=== PATIENT | male | born 1995 | race Caucasian/White ===

== ENCOUNTER 2025-08-20 04:14 | Emergency (ER) | payer OTHER, SELFPAY ==
[2025-08-20 04:16] VITALS: BP 133/71; PULSE 103; RESP 18; TEMP 39.3; O2SAT 97; BMI 35.4
[2025-08-20] MEDS: 0.9% Normal Saline (1000mL) 1,000 ML 999 ML IV ×2 (04:39→05:38)
[2025-08-20] MEDS: Ketorolac 30 MG/ML Syringe IV (04:39)
--- OUTSIDE RECORDS SUMMARY | 2025-08-20 04:57 | XMS RPT_ITS | CCD ---
Author Organization [facility] Care Team Providers Care Product Inspection Coordinator Name Role Phone Yoandy Campos MD Primary Care Provider YOANDY CAMPOS Primary Care Unavailab le PROVIDER, UNKNOWN Referring Unavailable PROVIDER, UNKNOWN Referring Unavailable YOANDY CAMPOS Primary Care Unavailab le Jaiden JACKSON, Chalino Bolivar Primary Care Provider Jaiden JACKSON, Chalino Bolivar Primary Care Provider CHALINO HWANG Primary Care Unavailable CHALINO HWANG Primary Care Unavailable Medications Current Medications Medication Drug Class(es) Dates Sig (Normalized) Sig (Original) enteric contrast (will be provided with radiology test) (1 source) Start: 04-14-2022 End: 04-15-2022 enteric contrast (will be provided with radiology test) Indications: Ileitis For CT ENTEROGRAPHY W IVCON order Administer, As Directed One Time Only, via Oral, Rectal, both Oral and Rectal, Enteric Tube, Stoma or Indwelling Catheter, Enteric Contrast as designated per enteric contrast guidelines. 1 Each 0 04/14/2022 04/15/2022 Active Comment on above: For CT ENTEROGRAPHY W IVCON order Admini ster, As Directed One Time Only, via Oral, Rectal, both Oral and Rectal, Enteric Tube, Stoma or Indwelling Catheter, Enteric Contrast as designated per enteric contrast guidelines. iv contrast (will be provided with radiology test) (1 source) Start: 04-14-2022 End: 04-15-2022 iv contrast (will be provided with radiology test) Indications: Ileitis CT Enterography W Inject, intravenously, once for 1 dose.No IV access, insert saline lock prior to the beginning of sedation, infusion, injection of imaging exam. Discontinue saline lock post exam. If Pt. has a central line or IVAD, may access for administration according to line specific nursing protocol. Once exam is complete flush line and de-access according to line specific nursing protocol in the CT contrast administration guidelines link. 1 Each 0 04/14/2022 04/15/2022 Active Comment on above: CT Enterography W Inject, intravenously, once for 1 dose.No IV access, insert saline lock prior to the beginning of sedation, infusion, injection of imaging exam. Discontinue saline lock post exam. If Pt. has a central line or IVAD, may access for administration according to line specific nursing protocol. Once exam is complete flush line and de-access according to line specific nursing protocol in the CT contrast administration guidelines link. omeprazole 20 mg delayed release oral capsule (9 sources) Proton Pump Inhibitor Start: 04-14-2022 End: 07-13-2022 take 1 capsule by mouth once daily 30 minutes before breakfast omeprazole (PRILOSEC) 20 mg capsule Indications: Gastroesophageal reflux disease with esophagitis without hemorrhage Take 1 capsule by mouth once daily. Take 30 minutes before breakfast. 90 capsule 0 04/14/2022 07/13/2022 Active Start: 03-29-2022 End: 04-28-2022 take 2 capsules by mouth once daily before breakfast omeprazole (PRILOSEC) 20 mg capsule Indications: Gastroesophageal reflux disease with esophagitis without hemorrhage Take 2 capsules by mouth daily before breakfast. Take 30 minutes before breakfast. 180 capsule 0 04/14/2022 04/14/2022 Discontinued (Clinical Decision) Comment on above: Take 2 capsules by m outh daily before breakfast. 1/2 hr before meal. Take 1 capsule by mo uth once daily. Take 30 minutes before breakfast. Take 2 capsules by m outh daily before breakfast. Take 30 minutes before breakfast. predniSONE 10 mg oral tablet (2 sources) Start: 03-26-2024 predniSONE (DELTASONE) 10 mg tablet Take 4 tabs daily for 3 days, then 2 tabs daily for 3 days, then 1 tab daily for 3 days with food. 21 tablet 0 03/26/2024 Active Start: 10-24-2023 End: 11-02-2023 predniSONE (DELTASONE) 10 mg tablet Take 4 tabs daily for 3 days, then 2 tabs daily for 3 days, then 1 tab daily for 3 days with food. 21 tablet 0 10/24/2023 11/02/2023 Active Comment on above: Take 4 tabs daily fo r 3 days, then 2 tabs daily for 3 days, then 1 tab daily for 3 days with food. triamcinolone acetonide 1 mg/ml topical cream (2 sources) Corticosteroid Start: 10-24-2023 triamcinolone acetonide (KENALOG) 0.1 % cream Apply 1 application to affected area two times a day. Apply to affected area. 15 g 0 10/24/2023 Active Comment on above: Apply 1 application to affected area two times a day. Apply to affected area. Completed/Discontinued Medications Medication Drug Class(es) Dates Sig (Normalized) Sig (Original) benzonatate 100 mg oral capsule (7 sources) Non-narcotic Antitussive Start: 10-04-2019 benzonatate (TESSALON PERLE) 100 mg capsule Indications: Cough Take 1-2 capsules tid prn, no more than 6 in 24 hours. 40 capsule 0 10/04/2019 Active Comment on above: Take 1-2 capsules ti d prn, no more than 6 in 24 hours. ondansetron 4 mg disintegrating oral tablet (7 sources) Serotonin-3 Receptor Antagonist Start: 03-29-2022 take 1 tablet by mouth every eight hours as needed ondansetron orally disintegrating (ZOFRAN ODT) 4 mg disintegrating tablet Take 1 tablet by mouth every 8 hours as needed. 12 tablet 0 03/29/2022 Active Comment on above: Take 1 tablet by noman th every 8 hours as needed. Problems Problem Classification Problem Date Documented Date Episodic/Chronic Abdominal pain (6 sources) Generalized abdominal pain; Translations: [Generalized abdominal pain] Onset: 05-26-2022 Episodic Allergic reactions (2 sources) Allergic contact dermatitis caused by plant material; Translations: [Allergic contact dermatitis due to plants, except food] 10-24-2023 Episodic Esophageal disorders (2 sources) Gastro-esophageal reflux disease with esophagitis; Translations: [Gastroesophageal reflux disease with esophagitis without hemorrhage] Chronic Nausea and vomiting (3 sources) Nausea; Translations: [Nausea] Episodic Noninfectious gastroenteritis (3 sources) Ileitis; Translations: [Noninfective gastroenteritis and colitis, unspecified] Onset: 05-26-2022 Episodic Other nutritional; endocrine; and metabolic disorders (3 sources) Weight loss; Translations: [Abnormal weight loss] Episodic Residual codes; unclassified (3 sources) Early satiety; Translations: [Early satiety] Episodic Residual codes; unclassified (3 sources) FH: Ulcerative colitis; Translations: [Family history of other diseases of the digestive system] Episodic Residual codes; unclassified (2 sources) Family history of inflammatory bowel disease; Translations: [Family history of other diseases of the digestive system] Episodic Residual codes; unclassified (1 source) Family history of other diseases of the digestive system; Translations: [FH: inflammatory bowel disease] Onset: 05-26-2022 Episodic Results Test Name Value Interpretation Reference Range Facility CNOV 03-26-2024 CNOV Office Visit ([facility] ) -------- ERNESTINESONIDO Dianne ([id number]) 1995 M Date Time Provider Department 03/26/24 6:00 PM GILSON GÓMEZ [facility] During your visit today, we recorded the following information about you: Temperature Pulse Respiration Blood pressure 98.3 degrees 84/minute 16/minute 112/68 Weight 71.8 kg Gilson Gómez APRN.CNP 03/26/2024 6:19 PM Signed This note was created using NoteWriter. Subjective Sonido Dianne Sanderson is a 28 year old male. 28 year old male with no PMH presents for rash Acute onset 5 to 6 days ago Bilateral arms, Bilateral legs +trunk +red raised and itchy +exposure to vine plants Denies new lotions, soaps or medicines Has used Calamine Has used Crystal Dry Denies fever or chills Denies URI sx Denies body aches or fatigue Anytime I get poison crystal I need steroids The history is provided by the patient. No medical insurance biller was used. Rash This is a new problem. The current episode started in the past 7 days. The problem is unchanged. The rash is diffuse. The rash is characterized by redness and itchiness. He was exposed to plant contact. Pertinent negatives include no anorexia, congestion, cough, diarrhea, eye pain, facial edema, fatigue, fever, joint pain, nail changes, rhinorrhea, shortness of breath, sore throat or vomiting. Past treatments include anti-itch cream. The treatment provided no relief. There is no history of allergies, asthma, eczema or varicella. PAST MEDICAL HISTORY No date: NEGATIVE MEDICAL HISTORY PAST SURGICAL HISTORY 04/05/2022: COLONOSCOPY Comment: repeat in 5 years 04/05/2022: EGD W/O [facility] SPEC VARICIES INJ No date: NONE ALLERGIES Patient has no known allergies. MEDICATIONS predniSONE (DELTASONE) 10 mg tablet Take 4 tabs daily for 3 days, then 2 tabs daily for 3 days, then 1 tab daily for 3 days with food. triamcinolone acetonide (KENALOG) 0.1 % cream Apply 1 application to affected area two times a day. Apply to affected area. (Patient not taking: Reported on 03/26/2024) No family history on file. Social History Tobacco Use Smoking status: Never Passive exposure: Yes Smokeless tobacco: Never Vaping Use Vaping Use: Never used Substance Use Topics Alcohol use: Yes Drug use: Never Review of Systems Constitutional: Negative for activity change, appetite change, chills, fatigue and fever. HENT: Negative for congestion, rhinorrhea and sore throat. Eyes: Negative for pain, discharge and itching. Respiratory: Negative for apnea, cough, chest tightness and shortness of breath. Cardiovascular: Negative for chest pain, palpitations and leg swelling. Gastrointestinal: Negative for abdominal pain, anorexia, diarrhea and vomiting. Musculoskeletal: Negative for arthralgias, back pain and joint pain. Skin: Positive for rash. Negative for color change and nail changes. Allergic/Immunologic: Negative for environmental allergies, food allergies and immunocompromised state. Neurological: Negative for dizziness, seizures, facial asymmetry, light-headedness, numbness and headaches. Hematological: Negative for adenopathy. Does not bruise/bleed easily. Psychiatric/Behavioral: Negative for agitation and behavioral problems. Objective BP 112/68 Pulse 84 Temp 36.8 ?C (98.3 ?F) Resp 16 Wt 71.8 kg (158 lb 4.6 oz) SpO2 96% BMI 24.79 kg/m? Physical Exam Vitals and nursing note reviewed. Constitutional: General: He is not in acute distress. Appearance: Normal appearance. He is not ill-appearing, toxic-appearing or diaphoretic. HENT: Head: Normocephalic and atraumatic. Right Ear: External ear normal. Left Ear: External ear normal. Nose: Nose normal. No congestion or rhinorrhea. Mouth/Throat: Mouth: Mucous membranes are moist. Pharynx: Oropharynx is clear. No oropharyngeal exudate or posterior oropharyngeal erythema. Eyes: General: Right eye: No discharge. Left eye: No discharge. Extraocular Movements: Extraocular movements intact. Conjunctiva/sclera: Conjunctivae normal. Pupils: Pupils are equal, round, and reactive to light. Cardiovascular: Rate and Rhythm: Normal rate and regular rhythm. Pulses: Normal pulses. Heart sounds: Normal heart sounds. No murmur heard. No friction rub. No gallop. Pulmonary: Effort: Pulmonary effort is normal. No respiratory distress. Breath sounds: Normal breath sounds. No stridor. No wheezing, rhonchi or rales. Chest: Chest wall: No tenderness. Abdominal: General: Abdomen is flat. There is no distension. Palpations: Abdomen is soft. There is no mass. Tenderness: There is no abdominal tenderness. There is no guarding or rebound. Hernia: No hernia is present. Musculoskeletal: General: No swelling, tenderness, deformity or signs of injury. Normal range of motion. Cervical back: Normal range of motion and neck supple. No rigidity or tende (more content not included)... Normal [facility] CNOVon 10-24-2023 CNOV Office Visit ([facility] ) -------- SONIDO SANDERSON ([id number]) 1995 M Date Time Provider Department 10/24/23 6:30 PM CHELSEY CARRENO [facility] During your visit today, we recorded the following information about you: Temperature Pulse Respiration Blood pressure 97.5 degrees 76/minute 16/minute 124/72 Weight 75.3 kg Chelsey Carreno PA 10/24/2023 7:05 PM Signed This note was created using [employer]. Subjective Sonido Sanderson is a 28 year old male. Review of Systems Objective BP 124/72 Pulse 76 Temp 36.4 ?C (97.5 ?F) Resp 16 Wt 75.3 kg (166 lb) SpO2 96% BMI 26.00 kg/m? Physical Exam Assessment and Plan Problem List Items Addressed This Visit None Visit Diagnoses Allergic contact dermatitis due to plants, except food - Primary Chelsey Carreno PA 10/24/2023 7:05 PM Signed This note was created using [employer]. Subjective Sonido Sanderson is a 28 year old male. HPI 28-year-old male presents for rash. Patient states that he started getting a rash on his right arm on Tuesday. He was working outside in the [employer]. He thinks it may be poison crystal. He has several linear like rashes on right arm and now has several areas of rash on the left arm. He states is very itchy. He has been using calamine lotion without improvement. No fevers. No facial or oral involvement. No swelling. No rash anywhere else. Nobody else at home has similar rash. No other complaint. PAST MEDICAL HISTORY Diagnosis Date NEGATIVE MEDICAL HISTORY PAST SURGICAL HISTORY Procedure Laterality Date COLONOSCOPY 04/05/2022 repeat in 5 years EGD W/O [facility] SPEC VARICIES INJ 04/05/2022 NONE ALLERGIES Patient has no known allergies. MEDICATIONS predniSONE (DELTASONE) 10 mg tablet Take 4 tabs daily for 3 days, then 2 tabs daily for 3 days, then 1 tab daily for 3 days with food. triamcinolone acetonide (KENALOG) 0.1 % cream Apply 1 application to affected area two times a day. Apply to affected area. No family history on file. Social History Tobacco Use Smoking status: Never Passive exposure: Yes Smokeless tobacco: Never Vaping Use Vaping Use: Never used Substance Use Topics Alcohol use: Yes Drug use: Never Review of Systems Constitutional: Negative for chills and fever. HENT: Negative for congestion and sore throat. Respiratory: Negative for cough and shortness of breath. Gastrointestinal: Negative for diarrhea and vomiting. Skin: Positive for rash. Objective BP 124/72 Pulse 76 Temp 36.4 ?C (97.5 ?F) Resp 16 Wt 75.3 kg (166 lb) SpO2 96% BMI 26.00 kg/m? Physical Exam Vitals and nursing note reviewed. Constitutional: General: He is not in acute distress. Appearance: Normal appearance. He is not toxic-appearing. HENT: Nose: Nose normal. Mouth/Throat: Mouth: Mucous membranes are moist. Pharynx: No oropharyngeal exudate or posterior oropharyngeal erythema. Eyes: Conjunctiva/sclera: Conjunctivae normal. Cardiovascular: Rate and Rhythm: Normal rate and regular rhythm. Pulmonary: Effort: Pulmonary effort is normal. Breath sounds: Normal breath sounds. Skin: General: Skin is warm and dry. Findings: Rash present. Comments: Linear rash noted mainly on right arm. Several lesions on left arm. Some are vesicular in nature. Some scabbed over. Appears consistent with contact dermatitis. Neurological: Mental Status: He is alert. Assessment and Plan ASSESSMENT/PLAN: 1. Allergic contact dermatitis due to plants, except food - ICD9: 692.6, ICD10: L23.7 - Oral Steriod tx -Prednisone taper - Topical steriod tx with Rx for steriod cream/ointment- see orders -Advised to start the topical steroid ointment. If rash spreads or does not seem to improve in the next several days, may start oral prednisone taper. -Benadryl as needed for itching. - discussed skin care of rash - follow up if symptoms persist or worsen. Diagnosis and treatment plan were discussed and questions were answered to the patient's satisfaction. Pt acknowledged understanding of concepts and follow up plan. Specific signs and symptoms that would indicate the need for higher level of care were discussed in detail warranting prompt ER evaluation. MAICO Link Allergies As of Date: 10/24/2023 (No Known Allergies) Date Reviewed: 10/24/2023 Reviewed by: Vanessa Quiroz - Fully Assessed Reason for Visit: Rash [1087] Cmt: itching x 4 days Primary Visit Diagnosis:Allergic contact dermatitis due to plants, except food [L23.7] Order(s):predniSONE (DELTASONE) 10 mg tabletTake 4 tabs daily for 3 days, then 2 tabs daily for 3 days, then 1 tab daily for 3 days with food.Disp: 21 tabletRfl: 0 triamcinolone acetonide (KENALOG) 0.1 % creamApply 1 application to affected area two times a day. Apply to affected area.Disp: 15 gRfl: 0 Prescriptions as of 10/24/2023 - predniSONE (DELTAS (more content not included)... Normal [facility] CT ENTEROGRAPHY W IVCONon CT ENTEROGRAPHY W IVCON * * *Final Report* * * DATE OF EXAM: May 26 2022 10:03AM [facility] 0545 - CT ENTEROGRAPHY W IVCON / PROCEDURE REASON: multiple diagnoses * * * * Physician Interpretation * * * * EXAMINATION: CT ABDOMEN AND PELVIS WITH INTRAVENOUS CONTRAST AND NEUTRAL ORAL CONTRAST(CT ENTEROGRAPHY) HISTORY: Focal active ileitis on colon biopsy. Family history of inflammatory bowel disease TECHNIQUE: CT of the abdomen and pelvis using single phase Enterography technique CONTRAST: IV: 100 ml of Omnipaque 350 Oral: [address] Radiation dose: Integrated dose-length product (DLP) for this visit = 464 mGy*cm. CT Dose Reduction Employed: Automated exposure control (AEC) COMPARISON: None RESULT: ... GI Tract: Small bowel: No mural hyperenhancement or wall thickening. Specifically, the terminal ileum is unremarkable Colon and Rectum: No mural hyperenhancement or wall thickening. Strictures: None Fistulae/Sinus tracts: None Abscess: None Abdomen: Liver: No mass. Biliary: No bile duct dilation. Gallbladder is unremarkable. Spleen: No mass. No splenomegaly. Pancreas: No mass or duct dilation. Adrenals: No mass. Kidneys: No mass, calculus or hydronephrosis. Mild developmental rotational abnormality Lymph nodes: No abdominal or pelvic lymphadenopathy. Mesentery/Peritoneum: No ascites or mass. Vasculature: The celiac axis and SMA are patent. The portal vein and branches, splenic vein, SMV, and hepatic veins are patent. No aortic or iliac artery aneurysm. Pelvis: No mass, ascites or fluid collection. Bones/Soft Tissues: No significant finding. Lung Bases: Unremarkable. IMPRESSION: No acute abnormality. No CT evidence for active inflammatory bowel disease Rotoformer Backtender: YUVAL Transcribe Date/Time: May 27 2022 9:07A Dictated by : LINDSAY HENDRICKS MD This examination was interpreted and the report reviewed and electronically signed by: LINDSAY HENDRICKS MD on May 27 2022 9:11AM EST [id number] [facility] NURSING PROGon 05-26-2022 NURSING PROG HNO ID: [id number] Author: Layla Fernandes RN Service: Radiology Author Type: Registered Nurse Type: Nursing Progress Note Filed: 05/26/2022 9:20 AM Note Text: Radiology Service Progress Note DATE OF SERVICE: May 26, 2022 TIME: 9:19 AM PATIENT WEIGHT: 154 LBS PATIENT IDENTITY VERIFICATION COMPLETED USING TWO (2) STANDARD IDENTIFIERS: Name and Date of confirmed by patient verbally. FALL SCREENING: Has the patient had 2 falls in the last year or 1 fall with injury or currently using an Ambulatory Assistive Device (Walker, Cane, Wheelchair, Crutches, etc.)? No PATIENT GENDER DATA: Male ALLERGIES: Reviewed and unchanged CONTRAST ALLERGY: No EXAM: CT -CONTRAST INDUCED NEPHROPATHY RISK FACTORS: Not applicable CREATININE: Creatinine Date Value Ref Range Status 03/29/2022 1.04 0.73 - 1.22 mg/dL Final Estimated Glomerular Filtration Rate Date Value Ref Range Status 03/29/2022 103 >=60 mL/min/1.73m? Final Comment: Estimated Glomerular Filtration Rate (eGFR) is calculated using the 2020 CKD-EPI creatinine equation. This equation utilizes serum creatinine, sex, and age as parameters. The creatinine assay has traceable calibration to isotope dilution-mass spectrometry. Refer to KDIGO guidelines for clinical interpretation. In patients with unstable renal function, e.g. those with acute kidney injury, the eGFR may not accurately reflect actual GFR. P.O.C.T. RESULTS: POC done: Yes, See Lab Tab May 26, 2022 TREATMENT: N/A IV SITE: Ambulatory: A peripheral IV was started in the Left antecubital site with a Angio cath: 22 gauge. IV SITE APPEARANCE: Clean,Dry and Intact SIGNATURE: Layla Fernandes RN PATIENT NAME: Sonido Sanderson DATE: May 26, 2022 TIME: 9:19 AM [facility] COLONOSCOPY DIAGNOSTICon [facility] EGD DIAGNOSTICon 04-05-2022 [facility] CBC W Auto Differential pane l (Bld)on 03-29-2022 Abs Immature Gran <0.10 k/uL [facility] Basophils (Bld) [#/Vol] 0.04 10*3/uL <0.11 k/uL [facility] Basophils/100 WBC (Bld) 0.5 % [facility] Differential cell count method Nom (Bld) Auto [facility] Eosinophils (Bld) [#/Vol] 0.07 10*3/uL <0.46 k/uL [facility] Eosinophils/100 WBC (Bld) 1.0 % [facility] Erythrocyte distribution width (RBC) [Ratio] 12.2 % 11.5 - 15.0 % [facility] Hematocrit (Bld) [Volume fraction] 51.0 % 39.0 - 51.0 % [facility] Hemoglobin (Bld) [Mass/Vol] 16.9 g/dL 13.0 - 17.0 g/dL [facility] Immature Gran % 0.1 % [facility] Lymphocytes (Bld) [#/Vol] 1.48 10*3/uL 1.00 - 4.00 k/uL [facility] Lymphocytes/100 WBC (Bld) 20.1 % [facility] MCH (RBC) [Entitic mass] 28.1 pg 26.0 - 34.0 pg [facility] MCHC (RBC) [Mass/Vol] 33.1 g/dL 30.5 - 36.0 g/dL [facility] MCV (RBC) [Entitic vol] 84.9 fL 80.0 - 100.0 fL [facility] Monocytes (Bld) [#/Vol] 0.48 10*3/uL <0.87 k/uL [facility] Monocytes/100 WBC (Bld) 6.5 % [facility] Neutrophils (Bld) [#/Vol] 5.28 10*3/uL 1.45 - 7.50 k/uL [facility] Neutrophils/100 WBC (Bld) 71.8 % [facility] Nucleated RBC (Bld) [#/Vol] <0.01 k/uL [facility] Nucleated RBC/100 WBC (Bld) [Ratio] 0.0 /100 WBC [facility] Platelet mean volume (Bld) [Entitic vol] 11.9 fL 9.0 - 12.7 fL [facility] Platelets (Bld) [#/Vol] 197 10*3/uL 150 - 400 k/uL [facility] RBC (Bld) [#/Vol] 6.01 10*6/uL High 4.20 - 6.0 0 m/uL [facility] WBC (Bld) [#/Vol] 7.36 10*3/uL 3.70 - 11. 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 Please see corresponding scanned documents with today's date. Office Procedures Physical Exam Coding PE Coding Pre-employment PE: Yes Coding Level of Care Code No Charge Diagnoses Encounter for pre-employment health screening examination Z02.1 CPT Codes PE Coding - Pre-employment PE: Yes (PREPE) Assessment and Plan Assessment and Plan (1) Encounter for pre-employment health screening examination: Status: Acute 03/13/21 1530 Date Ricky Luciano Signature: Date (if applicable) CC: Normal [facility] Urgent Care Visit Reporton 0 03-17-2020 Urgent Care Visit Report [facility] [address] [place] [address] OFFICE VISIT Date of Service: 03/17/20 MR#: [id number] Acct: [id number] Name: SONIDO SANDERSON Rep #: [id number] : 1995 Provider: MAICO oconnell Age/Sex: 24/M Location: [facility] Status: Signed Intake Vital Signs 03/17/20 Height 5 ft 8 in 03/17/20 Weight: 170 lb 03/17/20 BMI 25.8 03/17/20 BP 110/66 03/17/20 Blood Pressure Location Lt brachial 03/17/20 Position Sitting 03/17/20 Respiration 14 03/17/20 Pulse 72 03/17/20 Pulse Source Auscultation 03/17/20 Temp 98.3 F 03/17/20 Temp Source Oral Intake Visit Reasons: BEE STING RT FOOT Chief Complaint: bee sting HPI HPI Chief Complaint: bee sting Details: SONIDO SANDERSON, is a 24 M who presents to the office today for initial evaluation status post bee sting suffered last evening while at home. Patient notes bee sting suffered to the medial aspect of the right great toe at the MTPJ with localized erythema, swelling, warmth which is progressively spread to the dorsal aspect of the right foot proximal to the second third and fourth toes. Patient notes moderate aching discomfort to touch and with weightbearing alleviated minimally with sitting and resting. He notes no complaints of fever, chills, sweats, constricted/pruritic airway or chest pressure/shortness of breath/wheeze. He notes his immunizations are up-to-date including TD. He has taken [id number] products to assist with symptoms. He notes no other associated symptoms no other alleviating or aggravating factors. ROS Const Constitutional: No other (ROS negative x14 other than as noted above) Exam Const General: cooperative, healthy appearing, comfortable, no acute distress Nutritional Appearance: average body habitus Orientation: alert, awake, oriented x3 [facility] Head: normal to inspection Ears: hearing grossly normal bilaterally, external ears normal Nose: external nose normal, nares normal, no nasal discharge Face and sinus: normal facial exam, face symmetric Mouth: oral mucosae normal, lip normal, tongue normal, oropharynx normal Throat: posterior oropharynx normal, tonsils normal, uvula midline Eyes General: appearance normal, both eyes and all related structures Neck Neck: normal visual inspection, full ROM, no meningeal signs, supple Neck mass: No Chest Chest palpation inspection: normal inspection of the chest Resp Effort Inspection: normal respiratory effort, able to speak in complete sentences, symmetric chest movement, no cough Cardio Rate: regular rate Pulses: radial pulses present GI Inspection: normal to inspection Palpation: soft, no hepatosplenomegaly Skin General: no rashes or lesions noted, erythema (With swelling at right great toe medial MTPJ as well as dorsal right foot proximal to second third and fourth toes) Neuro General: alert, awake, oriented x3, gait normal Cognition: normal cognition Speech: speech normal Gait: normal gait Motor: muscle tone normal throughout Sensory Exam: no sensory deficits noted Extrem General: normal to inspection Psych Appearance: grossly normal Mental Status: mental status grossly normal Mood: congruent mood Affect: normal affect Speech and Movement: speech and movement normal Attitude: cooperative Thought Process: normal Thought Content: normal Judgment: judgment good Assessment Plan Problems 1. Bee sting T63.441A 2. Cellulitis of right foot L03.115 Plan Clindamycin and prednisone as prescribed today. Rest, ice, elevate, wound care as instructed today. [id number] Benadryl as needed for symptomatic relief. Work excuse provided. Follow-up with PCP in 2 to 3 days should symptoms not improve, ED sooner should symptoms worsen or any other concerns develop. Patient states acknowledging understanding all the above. This note was generated with [employer] dictation software. It may contain incorrect words, spelling, and punctuation that were not noted in checking the note before signing. Medications New: clindamycin HCl 300 mg PO TID 30 caps 0RF prednisone 3 tablets daily for 3 days, then 2 tablets daily for 3 days, then 1 tablet daily for 3 days 20 mg PO DAILY 18 tabs 0RF Coding Level of Care Code Off vis,est,level 3 Diagnoses Bee sting T63.441A Cellulitis of right foot L03.115 03/17/20 1148 Date Moiz Luciano Signature: Date (if applicable) CC: Normal [facility] Vital Signs Date Time Vital Sign Value Performing Clinician Faci lity 03-26-2024 17:56-0400 Body mass index (BMI) [Ratio] 24.79 kg/m2 Gilson Gómez [employer]IC[employer] MECHANIC.TRAY DELIVERY AIDE Work Phone: [facility] 03-26-2024 17:56-0400 Body temperature 98.29 [degF] Gilson Gómez [employer] MECHANIC.TRAY DELIVERY AIDE Work Phone: [facility] 03-26-2024 17:56-0400 Body weight 71.8 kg Gilson Gómez [employer] MECHANIC.TRAY DELIVERY AIDE Work Phone: [facility] 03-26-2024 17:56-0400 Diastolic blood pressure 68 mm[Hg] Gilson Gómez [employer] MECHANIC.TRAY DELIVERY AIDE Work Phone: [facility] 03-26-2024 17:56-0400 Heart rate 84 /min Gilson Gómez [employer] MECHANIC.TRAY DELIVERY AIDE Work Phone: [facility] 03-26-2024 17:56-0400 Respiratory rate 16 /min Gilson Gómez [employer] MECHANIC.TRAY DELIVERY AIDE Work Phone: [facility] 03-26-2024 17:56-0400 SaO2% (BldA) [Mass fraction] 96 % Gilson Gómez [employer] MECHANIC.TRAY DELIVERY AIDE Work Phone: [facility] 03-26-2024 17:56-0400 Systolic blood pressure 112 mm[Hg] Gilson Gómez [employer] MECHANIC.TRAY DELIVERY AIDE Work Phone: [facility] 10-24-2023 18:57-0500 Body temperature 97.5 [degF] Krislyn Aberegg PA Work Phone: [facility] 10-24-2023 18:57-0500 Body weight 75.3 kg Krislyn Aberegg PA Work Phone: [facility] 10-24-2023 18:57-0500 Diastolic blood pressure 72 mm[Hg] Krislyn Aberegg PA Work Phone: [facility] 10-24-2023 18:57-0500 Heart rate 76 /min Krislyn Aberegg PA Work Phone: [facility] 10-24-2023 18:57-0500 Respiratory rate 16 /min Krislyn Aberegg PA Work Phone: [facility] 10-24-2023 18:57-0500 SaO2% (BldA) [Mass fraction] 96 % Krislyn Aberegg PA Work Phone: [facility] 10-24-2023 18:57-0500 Systolic blood pressure 124 mm[Hg] Krislyn Aberegg PA Work Phone: [facility] 04-05-2022 10:11-0400 Diastolic blood pressure 79 mm[Hg] Alex López MD Work Phone: [facility] 04-05-2022 10:11-0400 Heart rate 62 /min Alex López MD Work Phone: [facility] 04-05-2022 10:11-0400 Respiratory rate 16 /min Alex López MD Work Phone: [facility] 04-05-2022 10:11-0400 SaO2% (BldA) [Mass fraction] 97 % Alex López MD Work Phone: [facility] 04-05-2022 10:11-0400 Systolic blood pressure 123 mm[Hg] Alxe López MD Work Phone: [facility] 04-05-2022 08:54-0400 Body temperature 98.91 [degF] Alex López MD Work Phone: [facility] 04-05-2022 08:54-0400 Body weight 69.9 kg Alex López MD Work Phone: [facility] 03-30-2022 08:54-0400 Body height 170.2 cm Cindi Skelton APRN.TRAY DELIVERY AIDE Work Phone: [facility] 03-30-2022 08:54-0400 Body weight 69.94 kg Cindi Skelton [employer] MECHANIC.TRAY DELIVERY AIDE Work Phone: [facility] 03-29-2022 12:17-0400 Body temperature 98.2 [degF] Rea Athy PA-C Work Phone: [facility] 03-29-2022 12:17-0400 Body weight 75.39 kg Rea Athy PA-C Work Phone: [facility] 03-29-2022 12:17-0400 Diastolic blood pressure 98 mm[Hg] Rea Athy PA-C Work Phone: [facility] 03-29-2022 12:17-0400 Heart rate 70 /min Rea Athy PA-C Work Phone: [facility] 03-29-2022 12:17-0400 Respiratory rate 21 /min Rea Athy PA-C Work Phone: [facility] 03-29-2022 12:17-0400 SaO2% (BldA) [Mass fraction] 99 % Rea Athy PA-C Work Phone: [facility] 03-29-2022 12:17-0400 Systolic blood pressure 132 mm[Hg] Rea Athy PA-C Work Phone: [facility] Encounters Encounter Date Encounter Type Care Provider Facility Start: 03-26-2024 End: 03-26-2024 [facility]ulatory [facility] Start: 03-26-2024 End: 03-26-2024 Patient encounter procedure Gilson Gómez APRN.TRAY DELIVERY AIDE Work Phone: [facility] Comment on above: Dermatitis due to pl ant (Primary Dx) Start: 10-24-2023 End: 10-24-2023 ambulatory [facility] Start: 10-24-2023 End: 10-24-2023 Patient encounter procedure Chelsey Carreno PA Work Phone: [facility] Comment on above: Allergic contact lola matitis due to plants, except food (Primary Dx) Start: 05-26-2022 ambulatory UNKNOWN PROVIDER Facili ty:[facility] Start: 05-26-2022 End: 05-26-2022 Subsequent hospital visit by physician Nay [facility] Comment on above: Abdominal pain, unsp ecified abdominal location [R10.9] Start: 05-03-2022 Refill Rea Cisneros Work Phone: [facility] Comment on above: Refill Request Start: 04-14-2022 Orders Only Cindi Skelton APRN.CNP Work Phone: Gastroenterology Comment on above: Abdominal pain, unsp ecified abdominal location (Primary Dx); Ileitis; FH: inflammatory bowel disease; Gastroesophageal reflux disease with esophagitis without hemorrhage Start: 04-05-2022 End: 04-05-2022 Subsequent hospital visit by physician Alex López MD Work Phone: Ambulatory Surgery Comment on above: Weight loss [R63.4] Start: 03-30-2022 End: 03-30-2022 Patient encounter procedure Cindi Skelton APRN.CNP Work Phone: Gastroenterology Comment on above: Dyspepsia (Primary D x); Weight loss; Early satiety; Family history of ulcerative colitis; Nausea Start: 03-29-2022 End: 03-29-2022 Patient encounter procedure Rea Matson PA-C Work Phone: [facility] Comment on above: Generalized abdomina l pain (Primary Dx); Weight loss; Early satiety; Family history of ulcerative colitis Procedures Date Procedure Procedure Detail Performing Clinician Start: 05-26-2022 Ct abdomen & pelvis w/contrast material Cindi Skelton APRN.CNP Work Phone: Start: 04-05-2022 Esophagogastroduodenoscopy transoral diagnostic Cindi Skelton APRN.CNP Work Phone: Start: 04-05-2022 Colonoscopy flx dx w/collj spec when pfrmd Cindi Skelton APRN.CNP Work Phone: Start: 04-05-2022 Colonoscopy Rea Matson PA-C Work Phone: Plan of Treatment Date Care Activity Detail Author Start: 03-17-2029 Urine microalbumin profile [facility] Start: 04-05-2027 Colonoscopy COLONOSCOPY [facility] Start: 04-05-2027 COLORECTAL CANCER SCREENING COLORECTAL CANCER SCREENING [facility] Start: 04-05-2027 Screening for malign ant neoplasm of colon [facility] Start: 04-22-2024 Influenza vaccination Influenza Vacc ine (#1) [facility] Start: 08-22-2023 Depression Assessment Depression Ass orthoindy hospitalment [facility] Start: 04-22-2023 Covid-19 Vaccine ( season) Covid-19 Vaccine () [facility] Start: 04-22-2023 Influenza vaccination Influenza Vacc ine (#1) [facility] Start: 04-22-2022 Influenza vaccination INFLUENZA (#1) [facility] Start: 03-29-2022 End: 05-29-2022 Comprehensive metabolic 2000 panel - Serum or Plasma [facility] Work Phone: Comment on above: Expected: 03/29/2022 , Expires: 05/29/2022 Start: 03-29-2022 End: 05-29-2022 Lipase [Enzymatic activity/volume] in Serum or Plasma [facility] Work Phone: Comment on above: Expected: 03/29/2022 , Expires: 05/29/2022 Start: 08-22-2021 DEPRESSION ASSESSMENT DEPRESSION ASS ESSMENT [facility] Start: 2016 Urine microalbumin profile DTAP,TDAP,TD (1 - Tdap) [facility] Start: 2015 Anxiety Screening Anxiety Screening [facility] Start: 2015 Depression Screening Depression Scre ening [facility] Start: 2015 HEPATITIS C SCREENING HEPATITIS C SC TITUS [facility] Start: 2015 HIV SCREENING HIV SCREENING [facility] Start: 2012 HPV Vaccine (1 - Mal e 3-dose series) HPV Vaccine (1 - Male 3-dose series) [facility] Start: 2011 PEDS TO ADULT TRANSI TION ANNUAL ASSESSMENT PEDS TO ADULT TRANSITION ANNUAL ASSESSMENT [facility] Start: 2009 Adult depression screening assessment DEPRESSION SCREENING [facility] Start: 2009 PEDS TO ADULT TRANSI TION INITIAL DISCUSSION PEDS TO ADULT TRANSITION INITIAL DISCUSSION [facility] Start: 2008 HPV VACCINE (1 - Mal e 2-dose series) HPV VACCINE (1 - Male 2-dose series) [facility] Start: 2007 MENINGOCOCCAL B: Consider based on risk (1 of 2 - Risk Bexsero 2-dose series) MENINGOCOCCAL B: Consider based on risk (1 of 2 - Risk Bexsero 2-dose series) [facility] Start: 2006 HPV Vaccine (1 - Mal e 2-dose series) HPV Vaccine (1 - Male 2-dose series) [facility] Start: 1997 COVID-19 VACCINE (#1) COVID-19 VACCI NE (#1) [facility] Start: 1997 HEPATITIS B (1 of 3 - 3-dose series) HEPATITIS B (1 of 3 - 3-dose series) [facility] End: 03-30-2023 COLONOSCOPY DIAGNOSTIC COLONOSCOPY DIAGNOSTIC Endoscopy Routine Weight loss Family history of ulcerative colitis 1 Occurrences starting 03/30/2022 until 03/30/2023 [facility] Work Phone: Comment on above: 1 Occurrences starti ng 03/30/2022 until 03/30/2023 End: 05-14-2023 Ct abdomen & pelvis w/contrast material CT ENTEROGRAPHY [facility] Radiology Routine Abdominal pain, unspecified abdominal location Ileitis FH: inflammatory bowel disease 1 Occurrences starting 04/14/2022 until 05/14/2023 [facility] Work Phone: Comment on above: 1 Occurrences starti ng 04/14/2022 until 05/14/2023 Ct abdomen & pelvis w/contrast material CT ENTEROGRAPHY W [facility]CON Radiology Routine Abdominal pain, unspecified abdominal location Ileitis FH: inflammatory bowel disease 05/26/2022 10:35 AM EDT [facility] Work Phone: End: 03-30-2023 EGD DIAGNOSTIC EGD DIAGNOSTIC Endoscopy Routine Weight loss Early satiety Nausea Dyspepsia 1 Occurrences starting 03/30/2022 until 03/30/2023 [facility] Work Phone: Comment on above: 1 Occurrences starti ng 03/30/2022 until 03/30/2023 SURGICAL PATHOLOGY [facility] Work Phone: Comment on above: Release Upon Orderin g for 1 Occurrences starting 04/05/2022, [facility] Payers Date Payer Category Payer Unknown [id number] 2018 Unknown [id number] Social History Date Type Detail Facility Start: [facility]29[facility]22 [facility] History of tobacco use Passive smoker [facility] Start: 03-29-2022 Tobacco use and exposure Smoke less tobacco non-user [facility] Start: 03-29-2022 End: 03-30-2022 Alcohol intake Not Asked [facility] Start: 1997 Sex Assigned At Not on file C [facility] Start: 03-19-2022 End: 05-26-2022 Exposure to SARS-CoV-2 (event) Not sure [facility] Start: 04-05-2022 End: 03-26-2024 Alcohol intake Current drinker of alcohol (finding) [facility] Start: 09-17-2022 End: 10-24-2023 History of Social function [facility] Start: 09-17-2022 End: 10-24-2023 Tobacco use panel [facility] National Score (1-10 0), lower number is lower risk 45 [facility] Clinical Notes 03-29-2022 to 03-26-2024 Gilson Gómez APRN.CNP - 03/26/2024 6:05 PM Chelsey Chandler PA - 10/24/2023 7:03 PM Chelsey Blanchard PA - 10/24/2023 7:03 PM Ronel Fernandes RN - 05/26/2022 10:30 AM EDT Note Date & Type Note Facility 03-26-2024 Note HNO ID: [id number] Author: GILSON GÓMEZ APRN.CNP Service: ? Author Type: Nurse Practitioner Type: Progress Notes Filed: 03/26/2024 18:19 Note Text: This note was created using NoteWriter. Subjective Sonido Sanderson is a 28 year old male. 28 year old male with no PMH presents for rash Acute onset 5 to 6 days ago Bilateral arms, Bilateral legs +trunk +red raised and itchy +exposure to vine plants Denies new lotions, soaps or medicines Has used Calamine Has used Crystal Dry Denies fever or chills Denies URI sx Denies body aches or fatigue Anytime I get poison crystal I need steroids The history is provided by the patient. No medical insurance biller was used. Rash This is a new problem. The current episode started in the past 7 days. The problem is unchanged. The rash is diffuse. The rash is characterized by redness and itchiness. He was exposed to plant contact. Pertinent negatives include no anorexia, congestion, cough, diarrhea, eye pain, facial edema, fatigue, fever, joint pain, nail changes, rhinorrhea, shortness of breath, sore throat or vomiting. Past treatments include anti-itch cream. The treatment provided no relief. There is no history of allergies, asthma, eczema or varicella. PAST MEDICAL HISTORY No date: NEGATIVE MEDICAL HISTORY PAST SURGICAL HISTORY 04/05/2022: COLONOSCOPY Comment: repeat in 5 years 04/05/2022: EGD W/O BRSH SPEC VARICIES INJ No date: NONE ALLERGIES Patient has no known allergies. MEDICATIONS predniSONE (DELTASONE) 10 mg tablet Take 4 tabs daily for 3 days, then 2 tabs daily for 3 days, then 1 tab daily for 3 days with food. triamcinolone acetonide (KENALOG) 0.1 % cream Apply 1 application to affected area two times a day. Apply to affected area. (Patient not taking: Reported on 03/26/2024) No family history on file. Social History Tobacco Use Smoking status: Never Passive exposure: Yes Smokeless tobacco: Never Vaping Use Vaping Use: Never used Substance Use Topics Alcohol use: Yes Drug use: Never Review of Systems Constitutional: Negative for activity change, appetite change, chills, fatigue and fever. HENT: Negative for congestion, rhinorrhea and sore throat. Eyes: Negative for pain, discharge and itching. Respiratory: Negative for apnea, cough, chest tightness and shortness of breath. Cardiovascular: Negative for chest pain, palpitations and leg swelling. Gastrointestinal: Negative for abdominal pain, anorexia, diarrhea and vomiting. Musculoskeletal: Negative for arthralgias, back pain and joint pain. Skin: Positive for rash. Negative for color change and nail changes. Allergic/Immunologic: Negative for environmental allergies, food allergies and immunocompromised state. Neurological: Negative for dizziness, seizures, facial asymmetry, light-headedness, numbness and headaches. Hematological: Negative for adenopathy. Does not bruise/bleed easily. Psychiatric/Behavioral: Negative for agitation and behavioral problems. Objective BP 112/68 Pulse 84 Temp 36.8 ?C (98.3 ?F) Resp 16 Wt 71.8 kg (158 lb 4.6 oz) SpO2 96% BMI 24.79 kg/m? Physical Exam Vitals and nursing note reviewed. Constitutional: General: He is not in acute distress. Appearance: Normal appearance. He is not ill-appearing, toxic-appearing or diaphoretic. HENT: Head: Normocephalic and atraumatic. Right Ear: External ear normal. Left Ear: External ear normal. Nose: Nose normal. No congestion or rhinorrhea. Mouth/Throat: Mouth: Mucous membranes are moist. Pharynx: Oropharynx is clear. No oropharyngeal exudate or posterior oropharyngeal erythema. Eyes: General: Right eye: No discharge. Left eye: No discharge. Extraocular Movements: Extraocular movements intact. Conjunctiva/sclera: Conjunctivae normal. Pupils: Pupils are equal, round, and reactive to light. Cardiovascular: Rate and Rhythm: Normal rate and regular rhythm. Pulses: Normal pulses. Heart sounds: Normal heart sounds. No murmur heard. No friction rub. No gallop. Pulmonary: Effort: Pulmonary effort is normal. No respiratory distress. Breath sounds: Normal breath sounds. No stridor. No wheezing, rhonchi or rales. Chest: Chest wall: No tenderness. Abdominal: General: Abdomen is flat. There is no distension. Palpations: Abdomen is soft. There is no mass. Tenderness: There is no abdominal tenderness. There is no guarding or rebound. Hernia: No hernia is present. Musculoskeletal: General: No swelling, tenderness, deformity or signs of injury. Normal range of motion. Cervical back: Normal range of motion and neck supple. No rigidity or tenderness. Right lower leg: No edema. Left lower leg: No edema. Lymphadenopathy: Cervical: No cervical adenopathy. Skin: General: Skin is warm and dry. Capillary Refill: Capillary refill takes less than 2 seconds. Coloration: Skin is not jaundiced or pale. Findings: Erythema an (more content not included)... [facility] 03-26-2024 History of Present illness Narrative This note was created using [employer]. Subjective Sonido Sanderson is a 28 year old male. 28 year old male with no PMH presents for rash Acute onset 5 to 6 days ago Bilateral arms, Bilateral legs +trunk +red raised and itchy +exposure to vine plants Denies new lotions, soaps or medicines Has used Calamine Has used Crystal Dry Denies fever or chills Denies URI sx Denies body aches or fatigue Anytime I get poison crystal I need steroids The history is provided by the patient. No medical insurance biller was used. Rash This is a new problem. The current episode started in the past 7 days. The problem is unchanged. The rash is diffuse. The rash is characterized by redness and itchiness. He was exposed to plant contact. Pertinent negatives include no anorexia, congestion, cough, diarrhea, eye pain, facial edema, fatigue, fever, joint pain, nail changes, rhinorrhea, shortness of breath, sore throat or vomiting. Past treatments include anti-itch cream. The treatment provided no relief. There is no history of allergies, asthma, eczema or varicella. PAST MEDICAL HISTORY No date: NEGATIVE MEDICAL HISTORY PAST SURGICAL HISTORY 04/05/2022: COLONOSCOPY Comment: repeat in 5 years 04/05/2022: EGD W/O BRSH SPEC VARICIES INJ No date: NONE ALLERGIES Patient has no known allergies. MEDICATIONS predniSONE (DELTASONE) 10 mg tablet Take 4 tabs daily for 3 days, then 2 tabs daily for 3 days, then 1 tab daily for 3 days with food. triamcinolone acetonide (KENALOG) 0.1 % cream Apply 1 application to affected area two times a day. Apply to affected area. (Patient not taking: Reported on 03/26/2024) No family history on file. Social History Tobacco Use Smoking status: Never Passive exposure: Yes Smokeless tobacco: Never Vaping Use Vaping Use: Never used Substance Use Topics Alcohol use: Yes Drug use: Never Review of Systems Constitutional: Negative for activity change, appetite change, chills, fatigue and fever. HENT: Negative for congestion, rhinorrhea and sore throat. Eyes: Negative for pain, discharge and itching. Respiratory: Negative for apnea, cough, chest tightness and shortness of breath. Cardiovascular: Negative for chest pain, palpitations and leg swelling. Gastrointestinal: Negative for abdominal pain, anorexia, diarrhea and vomiting. Musculoskeletal: Negative for arthralgias, back pain and joint pain. Skin: Positive for rash. Negative for color change and nail changes. Allergic/Immunologic: Negative for environmental allergies, food allergies and immunocompromised state. Neurological: Negative for dizziness, seizures, facial asymmetry, light-headedness, numbness and headaches. Hematological: Negative for adenopathy. Does not bruise/bleed easily. Psychiatric/Behavioral: Negative for agitation and behavioral problems. Objective BP 112/68 Pulse 84 Temp 36.8 C (98.3 F) Resp 16 Wt 71.8 kg (158 lb 4.6 oz) SpO2 96% BMI 24.79 kg/m Physical Exam Vitals and nursing note reviewed. Constitutional: General: He is not in acute distress. Appearance: Normal appearance. He is not ill-appearing, toxic-appearing or diaphoretic. HENT: Head: Normocephalic and atraumatic. Right Ear: External ear normal. Left Ear: External ear normal. Nose: Nose normal. No congestion or rhinorrhea. Mouth/Throat: Mouth: Mucous membranes are moist. Pharynx: Oropharynx is clear. No oropharyngeal exudate or posterior oropharyngeal erythema. Eyes: General: Right eye: No discharge. Left eye: No discharge. Extraocular Movements: Extraocular movements intact. Conjunctiva/sclera: Conjunctivae normal. Pupils: Pupils are equal, round, and reactive to light. Cardiovascular: Rate and Rhythm: Normal rate and regular rhythm. Pulses: Normal pulses. Heart sounds: Normal heart sounds. No murmur heard. No friction rub. No gallop. Pulmonary: Effort: Pulmonary effort is normal. No respiratory distress. Breath sounds: Normal breath sounds. No stridor. No wheezing, rhonchi or rales. Chest: Chest wall: No tenderness. Abdominal: General: Abdomen is flat. There is no distension. Palpations: Abdomen is soft. There is no mass. Tenderness: There is no abdominal tenderness. There is no guarding or rebound. Hernia: No hernia is present. Musculoskeletal: General: No swelling, tenderness, deformity or signs of injury. Normal range of motion. Cervical back: Normal range of motion and neck supple. No rigidity or tenderness. Right lower leg: No edema. Left lower leg: No edema. Lymphadenopathy: Cervical: No cervical adenopathy. Skin: General: Skin is warm and dry. Capillary Refill: Capillary refill takes less than 2 seconds. Coloration: Skin is not jaundiced or pale. Findings: Erythema and rash present. No bruising or lesion. Comments: Bilateral arms with diffuse and varied degree pruritic macupapular rash to streak like base. Bilateral legs and trunk with similar, with lesser degree Neurological: General: No focal deficit present. Mental Status: He is alert and oriented to person, place, and time. Cranial Nerves: No cranial nerve deficit. Sensory: No sensory deficit. Motor: No weakness. Coordination: Coordination normal. Gait: Gait normal. Deep Tendon Reflexes: Reflexes normal. Psychiatric: Mood and Affect: Mood normal. Behavior: Behavior normal. Thought Content: Thought content normal. Assessment and Plan ASSESSMENT/PLAN: 1. Dermatitis due to plant - ICD9: 692.6, ICD10: L25.5 - Oral Steriod tx -Prednisone taper - discussed skin care of rash - follow up if symptoms persist or worsen. Gilson Gómez APRN.TRAY DELIVERY AIDE documented in this encounter [facility] 10-24-2023 Note HNO ID: [id number] Author: CHELSEY CARRENO PA Service: ? Author Type: Physician Tube Splicer Type: Progress Notes Filed: 10/24/2023 19:05 Note Text: This note was created using NoteWriter. Subjective Sonido Sanderson is a 28 year old male. HPI 28-year-old male presents for rash. Patient states that he started getting a rash on his right arm on Tuesday. He was working outside in the brush. He thinks it may be poison crystal. He has several linear like rashes on right arm and now has several areas of rash on the left arm. He states is very itchy. He has been using calamine lotion without improvement. No fevers. No facial or oral involvement. No swelling. No rash anywhere else. Nobody else at home has similar rash. No other complaint. PAST MEDICAL HISTORY Diagnosis Date NEGATIVE MEDICAL HISTORY PAST SURGICAL HISTORY Procedure Laterality Date COLONOSCOPY 04/05/2022 repeat in 5 years [facility] IN[facility] 04/05/2022 NONE ALLERGIES Patient has no known allergies. MEDICATIONS predniSONE (DELTASONE) 10 mg tablet Take 4 tabs daily for 3 days, then 2 tabs daily for 3 days, then 1 tab daily for 3 days with food. triamcinolone acetonide (KENALOG) 0.1 % cream Apply 1 application to affected area two times a day. Apply to affected area. No family history on file. Social History Tobacco Use Smoking status: Never Passive exposure: Yes Smokeless tobacco: Never Vaping Use Vaping Use: Never used Substance Use Topics Alcohol use: Yes Drug use: Never Review of Systems Constitutional: Negative for chills and fever. HENT: Negative for congestion and sore throat. Respiratory: Negative for cough and shortness of breath. Gastrointestinal: Negative for diarrhea and vomiting. Skin: Positive for rash. Objective BP 124/72 Pulse 76 Temp 36.4 ?C (97.5 ?F) Resp 16 Wt 75.3 kg (166 lb) SpO2 96% BMI 26.00 kg/m? Physical Exam Vitals and nursing note reviewed. Constitutional: General: He is not in acute distress. Appearance: Normal appearance. He is not toxic-appearing. HENT: Nose: Nose normal. Mouth/Throat: Mouth: Mucous membranes are moist. Pharynx: No oropharyngeal exudate or posterior oropharyngeal erythema. Eyes: Conjunctiva/sclera: Conjunctivae normal. Cardiovascular: Rate and Rhythm: Normal rate and regular rhythm. Pulmonary: Effort: Pulmonary effort is normal. Breath sounds: Normal breath sounds. Skin: General: Skin is warm and dry. Findings: Rash present. Comments: Linear rash noted mainly on right arm. Several lesions on left arm. Some are vesicular in nature. Some scabbed over. Appears consistent with contact dermatitis. Neurological: Mental Status: He is alert. Assessment and Plan ASSESSMENT/PLAN: 1. Allergic contact dermatitis due to plants, except food - ICD9: 692.6, ICD10: L23.7 - Oral Steriod tx -Prednisone taper - Topical steriod tx with Rx for steriod cream/ointment- see orders -Advised to start the topical steroid ointment. If rash spreads or does not seem to improve in the next several days, may start oral prednisone taper. -Benadryl as needed for itching. - discussed skin care of rash - follow up if symptoms persist or worsen. Diagnosis and treatment plan were discussed and questions were answered to the patient's satisfaction. Pt acknowledged understanding of concepts and follow up plan. Specific signs and symptoms that would indicate the need for higher level of care were discussed in detail warranting prompt ER evaluation. MAICO Link [facility] 10-24-2023 Note HNO ID: [id number] Author: CHELSEY CARRENO PA Service: ? Author Type: Physician Tube Splicer Type: Progress Notes Filed: 10/24/2023 19:05 Note Text: This note was created using Pic[employer] Code Labsriter. Subjective Sonido Sanderson is a 28 year old male. Review of Systems Objective BP 124/72 Pulse 76 Temp 36.4 ?C (97.5 ?F) Resp 16 Wt 75.3 kg (166 lb) SpO2 96% BMI 26.00 kg/m? Physical Exam Assessment and Plan Problem List Items Addressed This Visit None Visit Diagnoses Allergic contact dermatitis due to plants, except food - Primary [facility] 10-24-2023 History of Present illness Narrative This note was created using [employer] Code [employer]. Subjective Sonido Sanderson is a 28 year old male. HPI 28-year-old male presents for rash. Patient states that he started getting a rash on his right arm on Tuesday. He was working outside in the brush. He thinks it may be poison crystal. He has several linear like rashes on right arm and now has several areas of rash on the left arm. He states is very itchy. He has been using calamine lotion without improvement. No fevers. No facial or oral involvement. No swelling. No rash anywhere else. Nobody else at home has similar rash. No other complaint. PAST MEDICAL HISTORY Diagnosis Date NEGATIVE MEDICAL HISTORY PAST SURGICAL HISTORY Procedure Laterality Date COLONOSCOPY 04/05/2022 repeat in 5 years EGD W/O [facility] SPEC VARICIES INJ 04/05/2022 NONE ALLERGIES Patient has no known allergies. MEDICATIONS predniSONE (DELTASONE) 10 mg tablet Take 4 tabs daily for 3 days, then 2 tabs daily for 3 days, then 1 tab daily for 3 days with food. triamcinolone acetonide (KENALOG) 0.1 % cream Apply 1 application to affected area two times a day. Apply to affected area. No family history on file. Social History Tobacco Use Smoking status: Never Passive exposure: Yes Smokeless tobacco: Never Vaping Use Vaping Use: Never used Substance Use Topics Alcohol use: Yes Drug use: Never Review of Systems Constitutional: Negative for chills and fever. HENT: Negative for congestion and sore throat. Respiratory: Negative for cough and shortness of breath. Gastrointestinal: Negative for diarrhea and vomiting. Skin: Positive for rash. Objective BP 124/72 Pulse 76 Temp 36.4 C (97.5 F) Resp 16 Wt 75.3 kg (166 lb) SpO2 96% BMI 26.00 kg/m Physical Exam Vitals and nursing note reviewed. Constitutional: General: He is not in acute distress. Appearance: Normal appearance. He is not toxic-appearing. HENT: Nose: Nose normal. Mouth/Throat: Mouth: Mucous membranes are moist. Pharynx: No oropharyngeal exudate or posterior oropharyngeal erythema. Eyes: Conjunctiva/sclera: Conjunctivae normal. Cardiovascular: Rate and Rhythm: Normal rate and regular rhythm. Pulmonary: Effort: Pulmonary effort is normal. Breath sounds: Normal breath sounds. Skin: General: Skin is warm and dry. Findings: Rash present. Comments: Linear rash noted mainly on right arm. Several lesions on left arm. Some are vesicular in nature. Some scabbed over. Appears consistent with contact dermatitis. Neurological: Mental Status: He is alert. Assessment and Plan ASSESSMENT/PLAN: 1. Allergic contact dermatitis due to plants, except food - ICD9: 692.6, ICD10: L23.7 - Oral Steriod tx -Prednisone taper - Topical steriod tx with Rx for steriod cream/ointment- see orders -Advised to start the topical steroid ointment. If rash spreads or does not seem to improve in the next several days, may start oral prednisone taper. -Benadryl as needed for itching. - discussed skin care of rash - follow up if symptoms persist or worsen. Diagnosis and treatment plan were discussed and questions were answered to the patient's satisfaction. Pt acknowledged understanding of concepts and follow up plan. Specific signs and symptoms that would indicate the need for higher level of care were discussed in detail warranting prompt ER evaluation. MAICO Link This note was created using NoteWriter. Subjective Sonido Sanderson is a 28 year old male. Review of Systems Objective BP 124/72 Pulse 76 Temp 36.4 C (97.5 F) Resp 16 Wt 75.3 kg (166 lb) SpO2 96% BMI 26.00 kg/m Physical Exam Assessment and Plan Problem List Items Addressed This Visit None Visit Diagnoses Allergic contact dermatitis due to plants, except food - Primary documented in this encounter [facility] 05-26-2022 Nurse Note Radiology Service Progress Note DATE OF SERVICE: May 26, 2022 TIME: 9:19 AM PATIENT WEIGHT: 154 LBS PATIENT IDENTITY VERIFICATION COMPLETED USING TWO (2) STANDARD IDENTIFIERS: Name and Date of confirmed by patient verbally. FALL SCREENING: Has the patient had 2 falls in the last year or 1 fall with injury or currently using an Ambulatory Assistive Device (Walker, Cane, Wheelchair, Crutches, etc.)? No PATIENT GENDER DATA: Male ALLERGIES: Reviewed and unchanged CONTRAST ALLERGY: No EXAM: CT -CONTRAST INDUCED NEPHROPATHY RISK FACTORS: Not applicable CREATININE: Creatinine Date Value Ref Range Status 03/29/2022 1.04 0.73 - 1.22 mg/dL Final Estimated Glomerular Filtration Rate Date Value Ref Range Status 03/29/2022 103 >=60 mL/min/1.73m Final Comment: Estimated Glomerular Filtration Rate (eGFR) is calculated using the 2020 CKD-EPI creatinine equation. This equation utilizes serum creatinine, sex, and age as parameters. The creatinine assay has traceable calibration to isotope dilution-mass spectrometry. Refer to KDIGO guidelines for clinical interpretation. In patients with unstable renal function, e.g. those with acute kidney injury, the eGFR may not accurately reflect actual GFR. P.O.C.T. RESULTS: POC done: Yes, See Lab Tab May 26, 2022 TREATMENT: N/A IV SITE: Ambulatory: A peripheral IV was started in the Left antecubital site with a Angio cath: 22 gauge. IV SITE APPEARANCE: Clean,Dry and Intact SIGNATURE: Layla Fernandes RN PATIENT NAME: Sonido Sanderson DATE: May 26, 2022 TIME: 9:19 AM documented in this encounter [facility] 04-05-2022 Nurse Note Pt received in PACU. Pt mildly drowsy, but arouses very easily. Denies sore throat, pain or nausea. Abd soft and non distended. Karina Mendoza RN documented in this encounter [facility] 04-05-2022 History and physical note Images from the original note were not included. REASON FOR VISIT Sonido Sanderson is a 26 year old male who is scheduled for abdominal pain at the request of Rea Matson. My final recommendations will be communicated back to the requesting physician by the way of the shared medical record, fax, or via US Mail. PRESENTING COMPLAINT & HISTORY 26- year old male with no PMH presenting today scheduled for abdominal pain. Seen yesterday in [facility] care. CBC, CMP , Lipase WNL. Prescribed omeprazole. Stomach issues for the past few months. Has lost 25-30 lbs unintentionally over the course of the past few months- eating less. Will eat and lose appetite. Stomach doesn't hurt, but does not feel right. Feels nauseated, Vomiting on Tuesday. + early satiety This past Tuesday was outside working and had 3 drinks of alcohol over 2-3 hours and stomach flipped and got sick. Was not able to eat for a few days after. Once got up and moves around stomach feels uneasy. Works for [employer] and [employer] came in and worked 16 hour days at that time. Unsure if stress. Took Omeprazole x1 day and has not noticed much improvement. Denies lower GI issues- constipation, diarrhea. Denies melena or hematochezia. FH: Ulcerative colitis- father. CURRENT MEDICATIONS omeprazole (PRILOSEC) 20 mg capsule Take 2 capsules by mouth daily before breakfast. 1/2 hr before meal. ondansetron orally disintegrating (ZOFRAN ODT) 4 mg disintegrating tablet Take 1 tablet by mouth every 8 hours as needed. benzonatate (TESSALON PERLE) 100 mg capsule Take 1-2 capsules tid prn, no more than 6 in 24 hours. (Patient not taking: Reported on 11/10/2020 ) Patient has no known allergies. FAMILY HISTORY No family history on file. PAST MEDICAL HISTORY PAST MEDICAL HISTORY Diagnosis Date NEGATIVE MEDICAL HISTORY PAST SURGICAL HISTORY PAST SURGICAL HISTORY Procedure Laterality Date NONE SOCIAL HISTORY Social History Tobacco Use Smoking status: Never Passive exposure: Yes Smokeless tobacco: Never Vaping Use Vaping Use: Never used REVIEW OF SYSTEMS EyesNegative for vision changes, diplopia or epiphora. Ears, Mouth, nose, throat:No problems Cardiovascular: No Problems Respiratory: Negative for cough, wheezing and shortness of breath Gastrointestinal : see HPI. Genitourinary: negative Musuloskeletal: Denies significant problems Integumentary: no rashes, lesions, or jaundice Neurological: No history of neurologic problems Endocrine: Negative for cold or heat intolerance, polyuria, polydipsia and goiter. Psychiatric: Cooperative and agreeable Allergic/ Immunologic: Negative PHYSICAL EXAMINATION General appearance: well appearing, alert, in no acute distress, and well-hydrated, well nourished Skin: skin color, texture, turgor normal, no suspicious rashes or lesions Head: normal Eyes: Pupils equal, round. Neck: Supple Lungs: lungs clear to auscultation no wheezing or rhonchi Heart: RRR Abdomen: Abdomen soft, non-tender. Bowel sounds normal. No masses, organomegaly Extremities: No deformities, edema, skin discoloration, clubbing or cyanosis. Assessment Impression 26- year old male with no PMH presents today for symptoms of dyspepsia, 25- 30 lb. Unintentional wt loss over the past few months. Report FH UC in [place]. Reports stomach does not feel right. Recent CBC CMP lipase unremarkable. Plan - EGD gastric bx r/o h.pylori - Colonoscopy - Continue omeprazole 20mg once daily- take 30 minutes before breakfast - Follow up after testing Cindi Skelton APRN.CNP UPDATED HISTORY AND PHYSICAL EXAMINATION SERVICE DATE: 04/05/2022 SERVICE TIME: 9:05 AM PHYSICAL EXAM MUST BE COMPLETED ON ADMISSION The History and Physical (completed in the past 30 days) has been reviewed and the patient has been examined. The contents accurately reflect the patient's condition with the following additions or revisions since the H&P was completed. Examination indicates no changes. This H&P can be found in the attached. SIGNATURE: Alex López III, MD PATIENT NAME: Sonido Sanderson DATE: April 05, 2022 TIME: 9:05 AM documented in this encounter [facility] 03-30-2022 Instructions Cindi Skelton APRN.TRAY DELIVERY AIDE - 03/30/2022 9:21 AM EDT Images from the original note were not included. Plan - EGD - Colonoscopy - Continue omeprazole 20mg once daily- take 30 minutes before breakfast - Follow up after testing Bowel Preparation Instructions for: Miralax-Gatorade Preparations IF YOU DO NOT FOLLOW THESE DIRECTIONS, YOUR COLONOSCOPY WILL BE CANCELLED. Mack Instructions: Your bowel must be empty so that your doctor can clearly view your colon. Follow all of the instructions in this handout EXACTLY as they are written. Do NOT eat any solid food the ENTIRE day before your colonoscopy. Buy your bowel preparation at least 5 days before your colonoscopy. Four (4) Dulcolax laxative tablets containing 5mg of bisacodyl each (NOT Dulcolax stool softener) One (1) 8.3oz. bottle Miralax (238 grams) or generic equivalent 2 x 32oz. Bottles of Gatorade (NOT RED) Diabetic Patients: Use G2 (Gatorade 2) TRANSPORTATION on the Day of Your Exam A responsible adult MUST be present with you at Check In prior to your colonoscopy and REMAIN in the endoscopy area until you are discharged. You are NOT ALLOWED to drive, take a taxi or bus, or leave the Endoscopy Center ALONE. If you do not have a responsible experienced truck driver (family member or friend) with you to take you home, your exam cannot be done with sedation and will be cancelled. Please bring a list of all of your current medications, including any [id number] medications with you. Medications If you take insulin, diabetic medications or blood thinners such as Coumadin (warfarin), Plavix (clopidogrel), Ticlid (ticlopidine hydrochloride), Agrylin (anagrelide), Xarelto (Rivaroxaban), Pradaxa (Dabigatran), Eliquis (Apixaban), and Effient (Prasugrel). You MUST call the doctors who orders those medicines for instructions on altering the dosage before your colonoscopy. All other medications should be taken the day of the exam with a sip of water including ASPIRIN. Five (5) Days Before Your Colonoscopy Do NOT take medicines that stop diarrhea - such as Imodium, Kaopectate, or Pepto Bismol. Do NOT take fiber supplements - such as Metamucil, Citrucel, or Perdiem. Do NOT take products that contain iron - such as multi-vitamins (the label lists what is in the products). Three (3) Days Before Your Colonoscopy Do NOT eat high-fiber foods - such as popcorn, beans, seeds (flax, sunflower, quinoa), multigrain bread, nuts, salad/vegetables, or fresh and dried fruit. 1 Bowel Preparation Instructions for: Miralax-Gatorade Preparations One (1) Day Before Your Colonoscopy Only drink clear liquids the ENTIRE DAY before your colonoscopy. Do NOT eat any solid foods. Drink at least 8 ounces of clear liquids every hour after waking up. The clear liquids you can drink include: Clear Liquid (NO RED LIQUIDS) DO NOT DRINK Gatorade, Pedialyte or Powerade Clear broth or bouillon Coffee or tea (no milk or non-dairy creamer) Carbonated and non-carbonated soft drinks Chilo-Aid or other fruit flavored drinks Strained fruit juices (no pulp) Jell-O, popsicles, hard candy Water Alcohol Milk or non-dairy creamers Noodles or vegetables in soup Juice with pulp Liquid you cannot see through Do not use tobacco/vaping products Mix 1/2 of Miralax bottle (119 grams) in each 32 ounces of Gatorade bottle until dissolved. Keep cool in the refrigerator. DO NOT ADD ICE. The bowel preparation solution will be consumed in two parts. Part 1 5:00 PM - Evening before your colonoscopy Take 4 Dulcolax tablets. 6 PM - Evening before your colonoscopy Drink 32 oz. of the mixed solution. Drink an 8 oz. glass of bowel preparation every 15 minutes for a total of 4 glasses. Fifteen (15) minutes later, drink an 8 oz. glass of of clear liquids every 15 minutes for a total of 2 glasses. You may continue to drink clear liquids till midnight. Part 2 On the day of your colonoscopy you may drink clear liquids up to (three) 3 hours prior to procedure. 4 1/2 hours before your colonoscopy Take another 32 oz. bottle of mixed solution. Drink an 8 oz. glass of bowel prep every 15 minutes for a total of 4 glasses. Fifteen (15) minutes later, drink an 8 oz. glass of clear liquids every 15 minutes for a total of 2 glasses. You may continue to drink clear liquids up to (three) 3 hours before your exam. 2 07/2019 documented in this encounter [facility] 03-30-2022 History of Present illness Narrative New Patient/Consult REASON FOR VISIT Sonido Sanderson is a 26 year old male who is scheduled for abdominal pain at the request of Rea Matson. My final recommendations will be communicated back to the requesting physician by the way of the shared medical record, fax, or via US Mail. PRESENTING COMPLAINT & HISTORY 26- year old male with no PMH presenting today scheduled for abdominal pain. Seen yesterday in [facility] care. CBC, CMP , Lipase WNL. Prescribed omeprazole. Stomach issues for the past few months. Has lost 25-30 lbs unintentionally over the course of the past few months- eating less. Will eat and lose appetite. Stomach doesn't hurt, but does not feel right. Feels nauseated, Vomiting on Tuesday. + early satiety This past Tuesday was outside working and had 3 drinks of alcohol over 2-3 hours and stomach flipped and got sick. Was not able to eat for a few days after. Once got up and moves around stomach feels uneasy. Works for [employer] and [employer] came in and worked 16 hour days at that time. Unsure if stress. Took Omeprazole x1 day and has not noticed much improvement. Denies lower GI issues- constipation, diarrhea. Denies melena or hematochezia. FH: Ulcerative colitis- father. omeprazole (PRILOSEC) 20 mg capsule Take 2 capsules by mouth daily before breakfast. /2 hr before meal. ondansetron orally disintegrating (ZOFRAN ODT) 4 mg disintegrating tablet Take 1 tablet by mouth every 8 hours as needed. benzonatate (TESSALON PERLE) 100 mg capsule Take 1-2 capsules tid prn, no more than 6 in 24 hours. (Patient not taking: Reported on 11/10/2020 ) Patient has no known allergies. No family history on file. PAST MEDICAL HISTORY Diagnosis Date NEGATIVE MEDICAL HISTORY PAST SURGICAL HISTORY Procedure Laterality Date NONE Social History Tobacco Use Smoking status: Never Passive exposure: Yes Smokeless tobacco: Never Vaping Use Vaping Use: Never used REVIEW OF SYSTEMS EyesNegative for vision changes, diplopia or epiphora. Ears, Mouth, nose, throat:No problems Cardiovascular: No Problems Respiratory: Negative for cough, wheezing and shortness of breath Gastrointestinal : see HPI. Genitourinary: negative Musuloskeletal: Denies significant problems Integumentary: no rashes, lesions, or jaundice Neurological: No history of neurologic problems Endocrine: Negative for cold or heat intolerance, polyuria, polydipsia and goiter. Psychiatric: Cooperative and agreeable Allergic/ Immunologic: Negative PHYSICAL EXAMINATION General appearance: well appearing, alert, in no acute distress, and well-hydrated, well nourished Skin: skin color, texture, turgor normal, no suspicious rashes or lesions Head: normal Eyes: Pupils equal, round. Neck: Supple Lungs: lungs clear to auscultation no wheezing or rhonchi Heart: RRR Abdomen: Abdomen soft, non-tender. Bowel sounds normal. No masses, organomegaly Extremities: No deformities, edema, skin discoloration, clubbing or cyanosis. Assessment Impression 26- year old male with no PMH presents today for symptoms of dyspepsia, 25- 30 lb. Unintentional wt loss over the past few months. Report FH UC in Father. Reports stomach does not feel right. Recent CBC CMP lipase unremarkable. Plan - EGD gastric bx r/o h.pylori - Colonoscopy - Continue omeprazole 20mg once daily- take 30 minutes before breakfast - Follow up after testing Cindi Skelton APRN.CNP March 30, 2022 8:41 AM documented in this encounter [facility] 03-29-2022 History of Present illness Narrative This note was created using [employer]Sphereter. Subjective Sonido Sanderson is a 26 year old male. HPI Patient presents with the chief complaint of abdominal pain, nausea over the past couple of months. He has had decreased appetite with feeling full early as well. He states the abdominal cramping comes and goes. He has lost about 30 pounds over the past 2 months as well without trying. He states his bowel movements have been regular, he goes every day. Denies any known blood in his stool. He states over the weekend he had 3 beers which caused him to vomit several times. He states typically he can have about 3 beers and this usually would not affect him. He had it over a 3-hour span. He denies being seen for this previously. He is in between primary care's and is trying to establish with Dr. Chalino Hwang. He denies fever or chills. No cough or congestion. No diarrhea. He does have a family history with his dad having ulcerative colitis. He has never had an endoscopy or colonoscopy previously himself. Sometimes the pain is worse with food and makes him not want to eat. Review of Systems Constitutional: Positive for appetite change, fatigue and unexpected weight change. Negative for chills and fever. HENT: Negative. Respiratory: Negative. Cardiovascular: Negative. Gastrointestinal: Positive for abdominal pain, nausea and vomiting. Negative for blood in stool, constipation and diarrhea. Genitourinary: Negative. Musculoskeletal: Negative. Skin: Negative. All other systems reviewed and are negative. PAST MEDICAL HISTORY Diagnosis Date NEGATIVE MEDICAL HISTORY Current Outpatient Medications Medication Sig Dispense Refill omeprazole (PRILOSEC) 20 mg capsule Take 2 capsules by mouth daily before breakfast. 1/2 hr before meal. 60 capsule 0 ondansetron orally disintegrating (ZOFRAN ODT) 4 mg disintegrating tablet Take 1 tablet by mouth every 8 hours as needed. 12 tablet 0 benzonatate (TESSALON PERLE) 100 mg capsule Take 1-2 capsules tid prn, no more than 6 in 24 hours. (Patient not taking: Reported on 11/10/2020 ) 40 capsule 0 No current facility-administered medications for this visit. PAST SURGICAL HISTORY Procedure Laterality Date NONE No family history on file. Social History Tobacco Use Smoking status: Never Passive exposure: Yes Smokeless tobacco: Never Vaping Use Vaping Use: Never used Objective BP 132/98 Pulse 70 Temp 36.8 C (98.2 F) Resp 21 Wt 75.4 kg (166 lb 3.2 oz) SpO2 99% Physical Exam Vitals reviewed. Constitutional: Appearance: Normal appearance. HENT: Head: Normocephalic and atraumatic. Mouth/Throat: Mouth: Mucous membranes are moist. Pharynx: Oropharynx is clear. Cardiovascular: Rate and Rhythm: Normal rate and regular rhythm. Heart sounds: Normal heart sounds. Pulmonary: Effort: Pulmonary effort is normal. Breath sounds: Normal breath sounds. Abdominal: General: Abdomen is flat. Palpations: Abdomen is soft. Comments: Mild tenderness in the left upper quadrant. Abdomen otherwise soft and nondistended. Bowel sounds active. Musculoskeletal: Cervical back: Neck supple. Skin: General: Skin is warm and dry. Neurological: Mental Status: He is alert. Assessment and Plan ASSESSMENT/PLAN: 1. Generalized abdominal pain - ICD9: 789.07, ICD10: R10.84 (primary diagnosis) -Patient did have some vomiting after drinking alcohol over the weekend. Could be gastritis. I will trial omeprazole. Given Zofran for nausea as well. I feel patient does need to be seen at gastroenterology and referral placed. Discussed red flags for ER care. I did order CBC CMP and lipase and will follow up on that. Recommending him call his primary care office to be seen as well. - CBC + DIFF - COMP METABOLIC PANEL - LIPASE BLD - CONSULT TO GASTROENTEROLOGY 2. Weight loss - ICD9: 783.21, ICD10: R63.4 - CONSULT TO GASTROENTEROLOGY 3. Early satiety - ICD9: 780.94, ICD10: R68.81 - CONSULT TO GASTROENTEROLOGY 4. Family history of ulcerative colitis - ICD9: V18.59, ICD10: Z83.79 - CONSULT TO GASTROENTEROLOGY Rea Matson PA-C documented in this encounter [facility] Evaluation note Diagnosis Generalized abdominal pain- Primary Abdominal pain, generalized Weight loss Loss of weight Early satiety Family history of ulcerative colitis Family history of other digestive disorders [facility] Diagnosis Dyspepsia- Primary Dyspepsia and other specified disorders of function of stomach Weight loss Loss of weight Early satiety Family history of ulcerative colitis Family history of other digestive disorders Nausea Nausea alone documented in this encounter [facility] note* Diagnosis Nausea and vomiting, unspecified vomiting type- Primary Weight loss Loss of weight Early satiety Nausea Nausea alone Dyspepsia Dyspepsia and other specified disorders of function of stomach Family history of ulcerative colitis Family history of other digestive disorders documented in this encounter [facility] note* Diagnosis Abdominal pain, unspecified abdominal location- Primary Ileitis Other and unspecified noninfectious gastroenteritis and colitis FH: inflammatory bowel disease Family history of other digestive disorders Gastroesophageal reflux disease with esophagitis without hemorrhage documented in this encounter [facility] note* Diagnosis Gastroesophageal reflux disease with esophagitis without hemorrhage documented in this encounter [facility] note* Diagnosis Abdominal pain, unspecified abdominal location Ileitis Other and unspecified noninfectious gastroenteritis and colitis FH: inflammatory bowel disease Family history of other digestive disorders documented in this encounter [facility] note* Diagnosis Allergic contact dermatitis due to plants, except food- Primary Contact dermatitis and other eczema due to plants (except food) documented in this encounter [facility] note* Diagnosis Dermatitis due to plant- Primary Contact dermatitis and other eczema due to plants (except food) documented in this encounter [facility] for referral (narrative)* Outpatient Procedure (Routine) - Authorized Specialty Diagnoses / Procedures Referred By Martin garza Referred To [facility] Diagnoses Weight loss Family history of ulcerative colitis Procedures COLONOSCOPY DIAGNOSTIC COLONOSCOPY FLX DX W/COLLJ SPEC WHEN PFRMD Cindi Skelton APRN.CNP [address] [place] [address] [facility] [place] [address] Referral ID Status Reason Start Date Expiration Date Visits Requested Visits Authorized [id number] Authorized Auto-Generat ed Referral 03/30/2022 03/30/2023 1 1 * Outpatient Procedure (Routine) - Authorized Specialty Diagnoses / Procedures Referred By Martin garza Referred To [facility] Diagnoses Weight loss Early satiety Nausea Dyspepsia Procedures EGD DIAGNOSTIC ESOPHAGOGASTRODUODENOSC OPY TRANSORAL DIAGNOSTIC Cindi Skelton APRN.CNP [address] [place] [address] [address] Referral ID Status Reason Start Date Expiration Date Visits Requested Visits Authorized [id number] Authorized Auto-Generat ed Referral 03/30/2022 03/30/2023 1 1 [facility] for referral (narrative)* Outpatient Procedure (Routine) - Closed Specialty Diagnoses / Procedures Referred By Martin garza Referred To Contact [facility] Diagnoses Weight loss Family history of ulcerative colitis Procedures COLONOSCOPY DIAGNOSTIC COLONOSCOPY FLX DX W/COLLJ SPEC WHEN PFRMD Cindi Skelton APRN.CNP [address] [place] [address] [facility] Disease [place] [id number] Referral ID Status Reason Start Date Expiration Date V isits Requested Visits Authorized [id number] Closed Auto-Generate d Referral 03/30/2022 03/30/2023 1 1 * Outpatient Procedure (Routine) - Closed Specialty Diagnoses / Procedures Referred By Martin garza Referred To [facility] Diagnoses Weight loss Early satiety Nausea Dyspepsia Procedures EGD DIAGNOSTIC ESOPHAGOGASTRODUODENOSC OPY TRANSORAL DIAGNOSTIC Cindi Skelton APRN.CNP [address] [place] [address] [address] Referral ID Status Reason Start Date Expiration Date V isits Requested Visits Authorized [id number] Closed Auto-Generate d Referral 03/30/2022 03/30/2023 1 1 [facility] for visit Narrative* Outpatient Procedure (Routine) - Closed Specialty Diagnoses / Procedures Referred By Martin t Referred To Contact [facility] Diagnoses Weight loss Family history of ulcerative colitis Procedures COLONOSCOPY DIAGNOSTIC COLONOSCOPY FLX DX W/COLLJ SPEC WHEN PFRMD Cindi Skelton APRN.TRAY DELIVERY AIDE [address] [place] [address] [place] [address] Referral ID Status Reason Start Date Expiration Date V isits Requested Visits Authorized [id number] Closed Auto-Generate d Referral 03/30/2022 03/30/2023 1 1 [facility] Summary Purpose Family History No Family History Records FoundNo Family History Records FoundNo Family History Records Found Advance Directives No Advanced Directives Records FoundNo Advanced Directives Records FoundNo Advanced Directives Records Found Reason for Referral Specialty Diagnoses / Procedures Referred By Martin t Referred To Contact Gastroenterology Diagnoses Generalized abdominal pain Weight loss Early satiety Family history of ulcerative colitis Procedures CONSULT TO GASTROENTEROLOGY OFFICE/OUTPATIENT [facility] 60-74 MINUTES Rea Matson PA-C [address] [place] [address] Referral ID Status Reason Start Date Expiration Date Visits Requested Visits Authorized [id number] Authorized PCP Requested Referral 03/29/2022 03/29/2023 1 1 Specialty Diagnoses / Procedures Referred By Martin garza Referred To Contact CT IMAGING Diagnoses Abdominal pain, unspecified abdominal location Ileitis FH: inflammatory bowel disease Procedures CT ENTEROGRAPHY W IVCON CT ABD & PELVIS W/CONTRAST Cindi Skelton, JOSE.TRAY DELIVERY AIDE [address] [place] [address] Ct Imaging Referral ID Status Reason Start Date Expiration Date Visits Requested Visits Authorized [id number] Pending Review Auto-Generat ed Referral 04/14/2022 05/14/2023 1 1 Referral ID Status Reason Start Date Expiration Date V isits Requested Visits Authorized [id number] Closed Auto-Generate d Referral 04/14/2022 06/19/2022 1 1 Medications Administered Section Inactive Administered Medications - up to 3 most recent administrations Medication Order MAR Action Action Date Dose Rate Site benzocaine 20% 1 [place] (TOPEX) 1 [place], TOPICAL, DIRECTED, Starting on Tue04/05/22 at 1000, Until Tue04/05/22 at 1359, DOSING DIRECTED BY PHYSICIAN FOR PROCEDURAL SEDATION ONLY - Pharmaceutical Waste: Aerosol -, Intraprocedure Given 04/05/2022 9:16 AM EDT 5 Sprays diphenhydrAMINE 12.5-50 mg injection (BENADRYL) 12.5-50 mg, INTRAVENOUS, DIRECTED, Starting on Tue04/05/22 at 1000, Until Tue04/05/22 at 1359, DOSING DIRECTED BY PHYSICIAN FOR PROCEDURAL SEDATION ONLY, Intraprocedure Given 04/05/2022 9:19 AM EDT 50 mg fentaNYL 50 mcg/mL 25-100 mcg injection (SUBLIMAZE) 25-100 mcg, INTRAVENOUS, DIRECTED, Starting on Tue04/05/22 at 1000, Until Tue04/05/22 at 1359, DOSING DIRECTED BY PHYSICIAN FOR PROCEDURAL SEDATION ONLY, Intraprocedure Given 04/05/2022 9:32 AM EDT 50 mcg Given 04/05/2022 9:17 AM EDT 50 mcg lactated ringers iv infusion 30 mL/hr, INTRAVENOUS, CONTINUOUS, Starting on Tue04/05/22 at 0900, Until Tue04/05/22 at 0953, Preprocedure New Bag/Syringe/Bottle 04/05/2022 8:50 AM EDT 30 mL/hr 30 mL/hr Arm, Right midazolam (PF) 1-5 mg injection (VERSED) 1-5 mg, INTRAVENOUS, DIRECTED, Starting on Tue04/05/22 at 1000, Until Tue04/05/22 at 1359, DOSING DIRECTED BY PHYSICIAN FOR PROCEDURAL SEDATION ONLY, Intraprocedure Given 04/05/2022 9:29 AM EDT 2 mg Given 04/05/2022 9:21 AM EDT 2 mg Given 04/05/2022 9:17 AM EDT 3 mg Additional Source Comments (unrecognized sect ion and content) No Status Records FoundNo Status Records FoundNo Status Records Found INFORMATION SOURCE (unrecogn ized section and content) DATE CREATED AUTHOR 03/14/2021 [facility] DATE CREATED AUTHOR AUTHOR'S ORGANIZ ATION 05/28/2022 [facility] DATE CREATED AUTHOR AUTHOR'S ORGANIZ ATION 03/28/2024 [facility] Source Comments (unrecognize d section and content) In the event this informatio n is protected by the Federal Confidentiality of Alcohol and Drug Abuse Patient Records regulations: The Federal rules restrict any use of the information to criminally investigate or prosecute any alcohol or drug abuse patient.[facility] event this information is protected by the Federal Confidentiality of Alcohol and Drug Abuse Patient Records regulations: The Federal rules restrict any use of the information to criminally investigate or prosecute any alcohol or drug abuse patient.[facility] the event this information is protected by the Federal Confidentiality of Alcohol and Drug Abuse Patient Records regulations: The Federal rules restrict any use of the information to criminally investigate or prosecute any alcohol or drug abuse patient.[facility] the event this information is protected by the Federal Confidentiality of Alcohol and Drug Abuse Patient Records regulations: The Federal rules restrict any use of the information to criminally investigate or prosecute any alcohol or drug abuse patient.[facility] the event this information is protected by the Federal Confidentiality of Alcohol and Drug Abuse Patient Records regulations: The Federal rules restrict any use of the information to criminally investigate or prosecute any alcohol or drug abuse patient.[facility] the event this information is protected by the Federal Confidentiality of Alcohol and Drug Abuse Patient Records regulations: The Federal rules restrict any use of the information to criminally investigate or prosecute any alcohol or drug abuse patient.[facility] the event this information is protected by the Federal Confidentiality of Alcohol and Drug Abuse Patient Records regulations: The Federal rules restrict any use of the information to criminally investigate or prosecute any alcohol or drug abuse patient.[facility] the event this information is protected by the Federal Confidentiality of Alcohol and Drug Abuse Patient Records regulations: The Federal rules restrict any use of the information to criminally investigate or prosecute any alcohol or drug abuse patient.[facility] the event this information is protected by the Federal Confidentiality of Alcohol and Drug Abuse Patient Records regulations: The Federal rules restrict any use of the information to criminally investigate or prosecute any alcohol or drug abuse patient.[facility] Reason for Visit (unrecogniz ed section and content) Reason Comments Abdominal Pain X 1 month Nausea Vomiting, not eating well x 2 months Reason Comments Abdominal Pain Weight loss of 25-30 l bs in 2 months Specialty Diagnoses / Procedures Referred By Contac t Referred To Contact Gastroenterology Diagnoses Generalized abdominal pain Weight loss Early satiety Family history of ulcerative colitis Procedures CONSULT TO GASTROENTEROLOGY OFFICE/OUTPATIENT [facility] MDM 60-74 MINUTES Rea Matson PA-C [address] [place] [address] Referral ID Status Reason Start Date Expiration Date V isits Requested Visits Authorized [id number] Closed PCP Requested Referral 03/29/2022 03/29/2023 1 1 Reason Comments Refill Request Specialty Diagnoses / Procedures Referred By Contac t Referred To Contact CT IMAGING Diagnoses Abdominal pain, unspecified abdominal location Ileitis FH: inflammatory bowel disease Procedures CT ENTEROGRAPHY W IVCON CT ABD & PELVIS W/CONTRAST Cindi Skelton, [employer]IC[employer]CH[employer]IC.TRAY DELIVERY AIDE [address] [place] [address] Ct Imaging Referral ID Status Reason Start Date Expiration Date V isits Requested Visits Authorized [id number] Closed Auto-Generate d Referral 04/14/2022 06/19/2022 1 1 Reason Comments Rash itching x 4 days Reason Comments Rash itching, all over x 6 days Care Teams (unrecognized sec tion and content) Product Inspection Coordinator Relationship Specialty Start Date End Date Yoandy Campos MD [address] [place] [address] PCP - General Family Practice 01/25/18 Product Inspection Coordinator Relationship Specialty Start Date End Date Yoandy Campos MD [address] [place], [place] [address] [phone] PCP - General Family Practice 01/25/18 Product Inspection Coordinator Relationship Specialty Start Date End Date Yoandy Campos MD [address] [place] [address] PCP - General Family Practice 01/25/18 Product Inspection Coordinator Relationship Specialty Start Date End Date Yoandy Campos MD [address] [place] [address] PCP - General Family Practice 01/25/18 Product Inspection Coordinator Relationship Specialty Start Date End Date Yoandy Campos MD [address] [place], [place] [address] [phone] PCP - General Family Medicine 01/25/18 Product Inspection Coordinator Relationship Specialty Start Date End Date Yoandy Campos MD [address] [place], [place] [id number] [phone] PCP - General Family Medicine 01/25/18 Product Inspection Coordinator Relationship Specialty Start Date End Date Chalino Hwang DO [address] [place], [place] [address] PCP - General Family Medicine 07/05/22 FOR RECORDS PERTAINING TO PATIENTS WHO ARE OR HAVE BEEN ENROLLED IN A CHEMICAL DEPENDENCY/SUBSTANCEABUSE PROGRAM, SOME INFORMATION MAY BE OMITTED. This clinical summary was aggregated from multiple sources. Caution should be exercised in using it in the provision of clinical care. This summary normalizes information from multiple sources, and as a consequence, information in this document may materially change the coding, format and clinical context of patient data. In addition, data may be omitted in some cases. CLINICAL DECISIONS SHOULD BE BASED ON THE PRIMARY CLINICAL RECORDS. [facility]. provides no warranty or guarantee of the accuracy or completeness of information in this document.
--- NOTE | 2025-08-20 05:33 | EDS_ITS ---
HPI History of Present Illness Chief Complaint: Fever Informant: patient and parent Narrative Narrative: Patient is a 30-year-old male with no reported past medical history. He states he has had 3 to 4 days of congestion cough muscle aches fatigue and fever. He was seen at his family doctor roughly 1 day ago and had a viral swab which was positive for influenza. He states that despite taking the medication provided by the family doctor he has had continued fevers with bouts of nausea vomiting and muscle aches and continues to feel unwell. Secondary to this he presents for evaluation He does note that multiple people in the household have had similar symptoms but he feels they are recovering more quickly than he is [facility] Medical History no medical history no medical history Home Medications ?Medication ?Instructions ?Recorded ?Last Taken ?Type codeine 10 mg-guaifenesin 100 mg/5 10 ml PO 4X/DAY PRN flu symptoms 7 08/20/25 Unknown Rx mL oral liquid days #280 mL ondansetron 4 mg disintegrating 4 mg PO TID PRN nausea and 08/20/25 Unknown Rx tablet vomiting #21 tabs oseltamivir 75 mg capsule 75 mg PO BID 08/20/25 Unknow n History prednisone 20 mg tablet 40 mg (2 x 20 mg) PO DAILY 5 days 08/20/25 Unknown Rx #10 tabs tizanidine 4 mg tablet 4 mg PO QHS 08/20/25 Unknown History Allergy/AdvReac Type Severity Reaction Status Date / Time No Known Allergies Allergy Verified 08/20/25 04:18 Social History (Updated 03/17/20 @ 11:48 by Moiz NINA, PA) Smoking Status: Never smoker [facility] ED Constitutional Constitutional ED: Reports chills and fever(s) ENT ENT ED: Reports rhinorrhea and sore throat Respiratory/Chest Respiratory/Chest: Reports cough; Denies dyspnea Gastrointestinal Gastrointestinal: Reports nausea and vomiting Musculoskeletal Musculoskeletal: Reports myalgias Neurologic Neurologic: Reports headache(s) and weakness EXAM Physical Exam Const Vital Signs: 08/20/25 04:16 08/20/25 04:16 Temperature 102.8 F H Temperature Source Oral Pulse Rate 103 H Respiratory Rate 18 Respiratory Effort Normal Non-Labored Respiratory Pattern Normal Blood Pressure 133/71 H Blood Pressure Mean 91 Pulse Ox 97 Oxygen Delivery Method Room Air Positive well nourished and well developed General Appearance ED: well developed; Negative for pallor HEENT Reports dry mucous membranes HEENT Narrative: Normocephalic atraumatic No tongue or lip swelling no oral lesions no airway edema or compromise Cobblestoning is noted in the posterior pharynx consistent with sinus drainage; no secondary findings to suggest infection Mucous membranes are mildly dry and tacky Mouth ED: Yes dry mucous membranes Mouth: dry mucous membranes Eyes PERRL and EOMs intact bilaterally General Eye ED: Negative for scleral icterus Neck supple Neck Narrative: Positive anterior cervical adenopathy noted No nuchal rigidity or meningeal signs Resp normal respiratory effort and clear to auscultation bilaterally Resp Narrative: No nasal flaring retractions tachypnea or accessory muscle use Cardio regular rate and regular rhythm Rate: other Other Details: Regular rate and rhythm without murmurs rubs or gallops Radial and carotid pulses are equal and symmetric GI non-tender, non-distended and no masses GI Narrative: Soft nontender nondistended with hyperactive bowel sounds No voluntary guarding or rigidity or pulsatile mass No peritoneal signs Auscultation: hyperactive bowel sounds Palpation: soft Extremity normal to inspection Extremity Narrative: No asymmetric edema no pitting edema negative Homans' sign bilaterally Neuro oriented x3, CN's II-XII intact bilaterally and no sensory deficits noted Sensorium / Orientation: alert Motor Exam: strength 5/5 throughout Psych mental status grossly normal Skin no rashes or lesions noted, no wounds and No skin turgor normal Skin Narrative: Skin turgor is mildly increased General Skin Exam: Negative for jaundice or pallor MDM MDM MDM Narrative Medical decision making narrative: Patient arrived to the ER with 103 fever but otherwise stable vitals. His history and exam is consistent with viral infection and is correlates with the fact that he reports he was positive for influenza just 24 hours ago. His physical exam does suggest mild dehydration. However he does not have findings to suggest systemic infection/sepsis or secondary infection such as strep pharyngitis pneumonia or appendicitis and therefore I feel no need for imaging or laboratory studies. In order to replace the fluid loss through fever and poor oral intake and nausea and vomiting from the influenza an IV was established and patient was given 2 L of IV fluid. With this he was given guaifenesin with codeine Zofran Toradol and Tylenol. On reevaluation the patient reports feeling better and vitals have improved. He remains in no acute respiratory distress without need for supplemental oxygen. Therefore do not feel the need for further intervention at this time he is otherwise safe for discharge with symptomatic care. History & Record Review Discussion w/independent historian: Patient and Family Discharge Plan Triage Chief Complaint: Fever ED Provider: Octaviano Ross Dx/Rx/DC Orders Clinical Impression: Influenza A, Pyrexia, Mild dehydration, Myalgia Instructions: ED Dehydration (Adult), ED Fever Control (Adult), ED Influenza (Adult) Prescriptions: New prednisone 20 mg tablet 40 mg PO DAILY 5 Days Qty: 10 0RF ondansetron 4 mg tablet,disintegrating 4 mg PO TID PRN (Reason: nausea and vomiting) Qty: 21 0RF codeine-guaifenesin 10-100 mg/5 mL liquid 10 ml PO 4X/DAY PRN (Reason: flu symptoms) 7 Days Qty: 280 0RF No Action tizanidine 4 mg tablet 4 mg PO QHS oseltamivir 75 mg capsule 75 mg PO BID Primary Care Provider: Vladimir Hwang Referrals: Vladimir Hwang DO [Primary Care Provider, Family Practice] Activity Restrictions/Additional Instructions: Influenza will last on average 7 days but can continue for 10 to 14 days. You can have a fever every day while you are sick and therefore take Tylenol and or Motrin for fever control. Use the prescribed medication as directed to help with symptoms as well and keep yourself well-hydrated. Return to the ER should you have any further concerns Print Language: [place]ese Disposition Disposition: Home, Self Care
[2025-08-20 06:15] VITALS: PULSE 88
[2025-08-20 06:20] VITALS: BP 126/62; PULSE 88; RESP 17; TEMP 38.3; O2SAT 99
== END 2025-08-20 06:39 | disposition home or self-care (01) ==
PROVIDERS: Emergency Provider Emergency Medicine; PCP Family Medicine; Visit Provider Emergency Medicine
DX: J10.1 Influenza due to other identified influenza virus with other respiratory manifestations (principal); E86.0 Dehydration; M79.10 Myalgia, unspecified site; R50.9 Fever, unspecified; R11.2 Nausea with vomiting, unspecified; Z79.899 Other long term (current) drug therapy; R51.9 Headache, unspecified
CPT/HCPCS: 96361; 96374; 96375; 99284; A4216; J2405